=== PATIENT | female | born 1980 | race Caucasian/White ===

== ENCOUNTER 2018-03-02 23:54 | Emergency (ER) | payer OTHER ==
[~2018-03-02] VITALS: Ht 160 cm; Wt 59.0 kg
[2018-03-02 23:59] VITALS: Ht 160 cm; Wt 59.0 kg
[2018-03-03 00:21] VITALS: BP 123/80
== END 2018-03-03 00:21 | disposition other institution (70) ==
LOC: ED 23:54
DX: Z02.89 Encounter for other administrative examinations (principal)

== ENCOUNTER 2019-01-30 18:54 | Emergency (ER) | payer SELFPAY ==
[~2019-01-30] VITALS: Ht 157.5 cm; Wt 49.9 kg
[2019-01-30 19:00] VITALS: Ht 157.5 cm; Wt 49.9 kg
[2019-01-30 19:22] VITALS: BP 112/71
== END 2019-01-30 19:22 | disposition left against medical advice (07) ==
LOC: ED 18:54
DX: S40.022A Contusion of left upper arm, initial encounter (principal); R51 Headache; R11.0 Nausea; R42 Dizziness and giddiness; I10 Essential (primary) hypertension; Y04.0XXA Assault by unarmed brawl or fight, initial encounter; Y93.89 Activity, other specified; Y92.89 Other specified places as the place of occurrence of the external cause; Y99.8 Other external cause status
CPT/HCPCS: G0480

== ENCOUNTER 2019-05-12 00:21 | Emergency (ER) | payer MEDICAID ==
[~2019-05-12] VITALS: Ht 157.5 cm; Wt 48.3 kg
[2019-05-12 01:17] VITALS: BP 109/70
== END 2019-05-12 01:17 | disposition home or self-care (01) ==
LOC: ED 00:21
DX: S01.112A Laceration without foreign body of left eyelid and periocular area, initial encounter (principal); S60.512A Abrasion of left hand, initial encounter; S60.511A Abrasion of right hand, initial encounter; I10 Essential (primary) hypertension; W11.XXXA Fall on and from ladder, initial encounter; Y93.89 Activity, other specified; Y92.89 Other specified places as the place of occurrence of the external cause; Y99.8 Other external cause status
CPT/HCPCS: 90715; J2001

== ENCOUNTER 2020-01-07 22:54 | Emergency (ER) | payer MEDICAID ==
[~2020-01-07] VITALS: Ht 162.6 cm; Wt 45.4 kg
[2020-01-07 23:14] VITALS: Ht 162.6 cm; Wt 45.4 kg
[2020-01-08 07:51] VITALS: BP 125/60
== END 2020-01-08 07:51 | disposition home or self-care (01) ==
LOC: ED 22:54
DX: F10.129 Alcohol abuse with intoxication, unspecified (principal); I10 Essential (primary) hypertension